=== PATIENT | male | born 1955 | race Caucasian/White ===

== ENCOUNTER 2019-02-28 07:04 | Day surgery (SDC) | payer BC ==
[~2019-02-28 07:04] MED LIST: Lactated Ringers 1,000 ML IV SCH; Lidocaine 1%/Sod Bicarbonate in NS 8.4% 1 ML Syringe IDERM PRN; Propofol 200 MG/20 ML SDV ONE; Sodium Chloride 0.9% 10 ML Syringe FLUSH PRN
--- NOTE | 2019-02-28 07:26 | PCM.PREANE ---
Preanesthetic Assessment - Anesthesia/Transfusion/Family Hx Anesthesia History: Prior Anesthesia Without Reaction Family History of Anesthesia Reaction: No Transfusion History: No Prior Transfusion(s) Intubation History: Unknown - Review of Systems General: No Symptoms Pulmonary: No Symptoms Cardiovascular: No Symptoms Gastrointestinal: No Symptoms Neurological: No Symptoms Other: Reports: Diabetes - Physical Assessment NPO Status Date: 02/27/19 NPO Status Time: 11:00 Height: 20.73 m Weight: 90.718 kg ASA Class: 3 Mental Status: Alert & Oriented x3 ROM/Head Extension: Full Lungs: Clear to Auscultation, Normal Respiratory Effort Cardiovascular: Regular Rate, Regular Rhythm - Allergies Allergies/Adverse Reactions: Allergies Allergy/AdvReac Type Severity Reaction Status Date / Time No Known Allergies Allergy Verified 02/27/19 13:03 - Blood Blood Available: No Product(s) Available: None - Anesthesia Plan Pre-Op Medication Ordered: None - Acknowledgements Anesthesia Type Planned: MAC Pt an Appropriate Candidate for the Planned Anesthesia: Yes Alternatives and Risks of Anesthesia Discussed w Pt/Guardian: Yes Pt/Guardian Understands and Agrees with Anesthesia Plan: Yes Additional Comments: Possible MIRLANDE- snores when sleeping - anatomy predisposes to MIRLANDE PreAnesthesia Questionnaire HEENT History: Reports: Impaired Vision Other HEENT History: Wears glasses Cardiovascular History: Reports: High Cholesterol, Hypertension, [place] Respiratory History: Reports: None Gastrointestinal History: Reports: None Genitourinary History: Reports: None Musculoskeletal History: Reports: None Neurological History: Reports: None Psychiatric History: Reports: None Endocrine/Metabolic History: Reports: Diabetes, Type II Hematologic History: Reports: None Immunologic History: Reports: None Oncologic (Cancer) History: Reports: None Dermatologic History: Reports: None - Past Surgical History Head Surgeries/Procedures: Reports: None HEENT Surgical History: Reports: None Cardiovascular Surgical History: Other Cardiovascular Surgeries/Procedures: Angiogram Respiratory Surgical History: Reports: None GI Surgical History: Reports: None Male Surgical History: Reports: None Endocrine Surgical History: Reports: None Neurological Surgical History: Reports: Lumbar Spine Other Musculoskeletal Surgeries/Procedures:: Low back surgery Oncologic Surgical History: Reports: None Dermatological Surgical History: Reports: None - SUBSTANCE USE Smoking Status *Q: Never Smoker Tobacco Use Within Last Twelve Months: No Recreational Drug Use History: No - HOME MEDS Home Medications: Home Meds Aspirin [Halfprin] 81 mg PO DAILY 02/27/19 [History] Cholecalciferol (Vitamin D3) [Vitamin D3] 5,000 unit PO DAILY 02/27/19 [History] Cyanocobalamin (Vitamin B12) [Vitamin B12] 1,000 mcg PO DAILY 02/27/19 [History] Linagliptin [Tradjenta] 5 mg PO DAILY 02/27/19 [History] Lisinopril 5 mg PO DAILY 02/27/19 [History] Metoprolol Succinate 100 mg PO BEDTIME 02/27/19 [History] atorvaSTATin [Lipitor] 40 mg PO BEDTIME 02/27/19 [History] metFORMIN [Glucophage] 500 mg PO BIDMEALS 02/27/19 [History] - CURRENT (IN HOUSE) MEDS Current Meds: Current Medications Lactated Ringer's (Ringers, Lactated) 1,000 mls @ 125 mls/hr IV ASDIRECTED BAUDILIO Stop: 02/28/19 23:00 Lidocaine/Sodium Bicarbonate (Buffered Lidocaine 1% In Ns 8.4%) 0.25 ml IDERM ONETIME PRN PRN Reason: Prior to IV Start Stop: 02/28/19 18:00 Sodium Chloride (Saline Flush) 10 ml FLUSH ASDIRECTED PRN PRN Reason: Keep Vein Open Stop: 02/28/19 18:00 Discontinued Medications Propofol (Diprivan 20 Ml) Confirm Administered Dose 200 mg .ROUTE .STK-MED ONE Stop: 02/28/19 07:00
[2019-02-28] MEDS ORDERED: fentaNYL 100 MCG/2 ML SDV ONE (07:33)
[2019-02-28] MEDS ORDERED: Midazolam 1 MG/ML 2 ML SDV ONE (07:33)
[2019-02-28] MEDS ORDERED: Propofol 200 MG/20 ML SDV ONE (08:13)
--- NOTE | 2019-02-28 08:37 | PCM48HPAN ---
Post Anesthesia Note - EVALUATION WITHIN 48HRS OF ANESTHETIC Vital Signs in Normal Range: Yes Patient Participated in Evaluation: Yes Respiratory Function Stable: Yes Airway Patent: Yes Cardiovascular Function Stable: Yes Hydration Status Stable: Yes Pain Control Satisfactory: Yes Nausea and Vomiting Control Satisfactory: Yes Mental Status Recovered: Yes
--- NOTE | 2019-02-28 08:37 | PCM.POSTAN ---
POST ANESTHESIA ASSESSMENT - MENTAL STATUS Mental Status: Alert - RESPIRATORY Respiratory Status: Respiratory Rate WNL, Airway Patent, O2 Saturation Stable - CARDIOVASCULAR CV Status: Pulse Rate WNL, Blood Pressure Stable - GASTROINTESTINAL GI Status: No Symptoms - POST OP HYDRATION Hydration Status: Adequate & Stable
--- NOTE | 2019-02-28 11:30 | OR ---
DATE OF OPERATION: 02/28/2019 SURGEON: Stuart Lozoya MD PREOPERATIVE DIAGNOSIS: Colorectal cancer screening. POSTOPERATIVE DIAGNOSIS: Colorectal cancer screening. OPERATION PERFORMED: Average-risk colonoscopy. FINDINGS: He had an excellent bowel prep. No polyps were identified. ANESTHESIA: MAC. PATHOLOGY: None. ESTIMATED BLOOD LOSS: None. DISPOSITION: Stable at the end of the procedure. INDICATION: The patient is a 63-year-old male, who has never had a colonoscopy. He has no family history. He is asymptomatic. He was offered a screening colonoscopy per the standard of care, though he is 13 years late. He was fully informed of the major risks, benefits, and alternatives. The risks include, but are not limited to, perforation of the colon, bleeding, risks of anesthesia, and the possibility of further surgery. He gave informed consent. DESCRIPTION OF PROCEDURE: The patient was brought to the gastro suite and placed in the left lateral decubitus position. He was given monitored anesthesia. A digital rectal exam was performed. This was unremarkable. I introduced the colonoscope with copious lubrication into the rectum. I advanced the scope with gentle forward pressure to the cecum. The cecum was identified and documented photographically. I slowly investigated the mucosa of the colon from the cecum back to the anus in an exam lasting 9 minutes. A thorough, careful examination failed to demonstrate polyps. He had no mucosal lesions. At the end of the procedure, the scope was withdrawn. He tolerated the procedure well. He was awakened from anesthesia and moved to recovery in stable condition. PLAN: He will need to follow up in 10 years for a screening colonoscopy unless he develops symptoms. ANGEL /[id number]
== END 2019-02-28 09:13 | disposition home or self-care (01) ==
LOC: JD.SDS 07:04
PROVIDERS: ATTEND Surgery
DX: Z12.11 Encounter for screening for malignant neoplasm of colon (principal); I10 Essential (primary) hypertension; I25.10 Atherosclerotic heart disease of native coronary artery without angina pectoris; I25.2 Old myocardial infarction; E11.9 Type 2 diabetes mellitus without complications; E78.00 Pure hypercholesterolemia, unspecified; Z79.82 Long term (current) use of aspirin; Z79.84 Long term (current) use of oral hypoglycemic drugs; Z79.899 Other long term (current) drug therapy
CPT/HCPCS: 00812; 93005; J2250; J2704; J3010; J7120

== ENCOUNTER 2023-01-06 06:57 | Day surgery (SDC) | payer MEDICARE, OTHER ==
[~2023-01-06 06:57] MED LIST changes: -Propofol 200 MG/20 ML SDV ONE; +Sodium Chloride 0.9% 10 ML Syringe FLUSH SCH
[2023-01-06] MEDS ORDERED: Midazolam 1 MG/ML 2 ML SDV ONE (07:36)
[2023-01-06] MEDS ORDERED: Propofol 200 MG/20 ML SDV ONE ×2 (07:36→09:20)
[2023-01-06] MEDS ORDERED: fentaNYL 100 MCG/2 ML SDV ONE (07:36)
[2023-01-06] MEDS ORDERED: Lidocaine 1% 2 ML ONE (07:36)
== END 2023-01-06 10:21 | disposition home or self-care (01) ==
LOC: JD.SDS 06:57
PROVIDERS: ATTEND Surgery
DX: D12.3 Benign neoplasm of transverse colon (principal); D12.2 Benign neoplasm of ascending colon; K57.30 Diverticulosis of large intestine without perforation or abscess without bleeding; I25.2 Old myocardial infarction; E78.00 Pure hypercholesterolemia, unspecified; I10 Essential (primary) hypertension; Z79.82 Long term (current) use of aspirin; Z79.899 Other long term (current) drug therapy
CPT/HCPCS: 45380; 82947; 93005; J2250; J2704; J3010; J7120; 00811; 93010; J3490